=== PATIENT | female | born 1950 | race Caucasian/White ===

== ENCOUNTER 2020-02-19 22:07 | Emergency (ER) | payer OTHER ==
[~2020-02-19] VITALS: Ht 152.4 cm; Wt 72.6 kg
[2020-02-19 22:28] VITALS: Ht 152.4 cm; Wt 72.6 kg
[2020-02-19 23:58] LABS: BASOPHIL % 0.2 % (0.2-1.3); PLATELET COUNT 191 x10^3mcL (179-408)
[2020-02-20 00:01] LABS: rbc morphology (normal/abnorm) NORMAL (NORMAL)
[2020-02-20 00:07] LABS: CALCIUM 9.2 mg/dL (8.5-10.1); CREATININE SERUM 1.4 mg/dL (0.6-1.0); POTASSIUM SERUM 4.2 mmol/L (3.5-5.1)
[2020-02-20 00:11] LABS: ALBUMIN 3.7 g/dL (3.4-5.0); BILIRUBIN TOTAL 0.3 mg/dL (0.20-1.00); CHOLESTEROL/HDL RATIO 3.7; TOTAL PROTEIN, SERUM 6.9 g/dL (6.4-8.2)
[2020-02-20 00:26] LABS: T3 TOTAL 0.86 ng/mL
[2020-02-20 00:35] LABS: FREE T4 1.07 ng/dL (0.76-1.46); FREE THYROXINE INDEX 2.6 ug/dL (1.4-4.5); T4(THYROXINE) 7.4 ug/dL (4.7-13.3)
[2020-02-20 01:19] VITALS: BP 129/77
== END 2020-02-20 01:19 | disposition home or self-care (01) ==
LOC: ED 22:07
PROVIDERS: Specialist
DX: I49.8 Other specified cardiac arrhythmias (principal); I10 Essential (primary) hypertension
CPT/HCPCS: 83880; 84439